=== PATIENT | male | born 1975 | race Asian ===

== ENCOUNTER 2019-09-09 12:15 | Emergency (ER) | payer OTHER ==
[~2019-09-09] VITALS: Ht 175.3 cm; Wt 72.6 kg
[2019-09-09 12:26] VITALS: TEMP 98.1
[2019-09-09 13:08] LABS: PLATELET COUNT 383 K/uL (142-355)
[2019-09-09 13:11] LABS: POTASSIUM 3.6 mmol/L (3.6-5.2)
[2019-09-09 15:25] VITALS: BP 115/79
== END 2019-09-09 15:50 | disposition short-term general hospital (02) ==
LOC: ED 12:15
PROVIDERS: Emergency Medicine
DX: C64.2 Malignant neoplasm of left kidney, except renal pelvis (principal); C78.02 Secondary malignant neoplasm of left lung; C78.01 Secondary malignant neoplasm of right lung; C79.89 Secondary malignant neoplasm of other specified sites; C79.72 Secondary malignant neoplasm of left adrenal gland
CPT/HCPCS: 80053; 82550; 82553; 84484; 85027; 85379; 93005; 96374; 96375; 99284; J2175; J2405; Q9963

== ENCOUNTER 2020-05-28 16:01 | Emergency (ER) | payer OTHER ==
[~2020-05-28] VITALS: Ht 172.7 cm; Wt 63.5 kg
[2020-05-28] MEDS ORDERED: MORPHINE SUL60 MG (16:46)
[2020-05-28] MEDS ORDERED: OXYC10TA3 PO (16:47)
[2020-05-28 17:45] VITALS: BP 100/56; TEMP 98
== END 2020-05-28 17:45 | disposition home or self-care (01) ==
LOC: ED 16:01
DX: K59.09 Other constipation (principal)
CPT/HCPCS: 99282